=== PATIENT | female | born 1980 | race Caucasian/White ===

== ENCOUNTER 2019-01-20 08:00 | Day surgery (SDC) | payer OTHER ==
[~2019-01-20 08:00] MED LIST: Lactated Ringers 1,000 ML IV SCH; Sodium Chloride 0.9% 10 ML SDV IV PRN; Sodium Chloride 0.9% 10 ML Syringe FLUSH PRN; Sodium Chloride 0.9% 2.5 ML Syringe FLUSH PRN; ceFAZolin 2 GM in Premix Bag 1 BAG IV ONE
--- NOTE | 2019-01-20 08:34 | PCM.PREANE ---
Preanesthetic Assessment - Anesthesia/Transfusion/Family Hx Anesthesia History: Prior Anesthesia Without Reaction Other Type of Anesthesia Reaction Comment: mother has had time waking up Family History of Anesthesia Reaction: No Transfusion History: No Prior Transfusion(s) Intubation History: Unknown - Review of Systems General: No Symptoms Pulmonary: No Symptoms Cardiovascular: No Symptoms Gastrointestinal: No Symptoms Neurological: No Symptoms Other: Reports: None - Physical Assessment Height: 5 ft 1 in Weight: 97.522 kg ASA Class: 2 Mental Status: Alert & Oriented x3 Airway Class: Mallampati = 2 Dentition: Reports: Normal Dentition Thyro-Mental Finger Breadths: 2 Mouth Opening Finger Breadths: 3 ROM/Head Extension: Full Lungs: Clear to Auscultation, Normal Respiratory Effort Cardiovascular: Regular Rate, Regular Rhythm - Allergies Allergies/Adverse Reactions: Allergies Allergy/AdvReac Type Severity Reaction Status Date / Time No Known Allergies Allergy Verified 01/19/19 07:26 - Blood Blood Available: No - Anesthesia Plan Pre-Op Medication Ordered: None - Acknowledgements Anesthesia Type Planned: General Anesthesia Pt an Appropriate Candidate for the Planned Anesthesia: Yes Alternatives and Risks of Anesthesia Discussed w Pt/Guardian: Yes Pt/Guardian Understands and Agrees with Anesthesia Plan: Yes PreAnesthesia Questionnaire - Past Health History Medical/Surgical History: Denies Medical/Surgical History HEENT History: Reports: Other (See Below) Other HEENT History: wears glasses Cardiovascular History: Reports: None Respiratory History: Reports: Other (See Below) (h/o pneumonia 08/10) Gastrointestinal History: Reports: GERD Genitourinary History: Reports: Pyelonephritis, Renal Calculus Other Genitourinary History: hospitalized in Jul 2018 for pylonephritis [employer] History: Reports: Musculoskeletal History: Reports: None Neurological History: Reports: None Psychiatric History: Reports: Depression Endocrine/Metabolic History: Reports: Obesity/BMI 30+ Hematologic History: Reports: None Immunologic History: Reports: None Oncologic (Cancer) History: Reports: None Dermatologic History: Reports: None - Infectious Disease History Infectious Disease History: Reports: Chicken Pox - Past Surgical History Head Surgeries/Procedures: Reports: None HEENT Surgical History: Reports: None Cardiovascular Surgical History: Reports: None Respiratory Surgical History: Reports: None GI Surgical History: Reports: None Female Surgical History: Reports: Other (See Below) Other Female Surgeries/Procedures: ESSURE procedure Endocrine Surgical History: Reports: None Neurological Surgical History: Reports: None Musculoskeletal Surgical History: Reports: None Oncologic Surgical History: Reports: None Dermatological Surgical History: Reports: None - SUBSTANCE USE Smoking Status *Q: Never Smoker - HOME MEDS Home Medications: Home Meds Calcium Carbonate [Tums] 1 tab.chew CHEW ASDIRECTED PRN 01/19/19 [History] Ibuprofen 2 tab PO ASDIRECTED PRN 01/19/19 [History] Tamsulosin HCl 0.4 mg PO DAILY 01/19/19 [History] oxyCODONE HCl/Acetaminophen [Oxycodone-Acetaminophen 5-325] 1 tab PO ASDIRECTED PRN 01/19/19 [History] - CURRENT (IN HOUSE) MEDS Current Meds: Current Medications Lactated Ringer's (Ringers, Lactated) 1,000 mls @ 100 mls/hr IV ASDIRECTED NORMA Sodium Chloride (Saline Flush) 10 ml FLUSH ASDIRECTED PRN PRN Reason: Keep Vein Open Sodium Chloride (Saline Flush) 2.5 ml FLUSH ASDIRECTED PRN PRN Reason: Keep Vein Open Sodium Chloride (Normal Saline) 10 ml IV ASDIRECTED PRN PRN Reason: IV Use Discontinued Medications Cefazolin Sodium/Dextrose 2 gm (/ Premix) 50 mls @ 100 mls/hr IV ONCALL ONE Stop: 01/20/19 05:29
[2019-01-20] MEDS ORDERED: Lidocaine 2% 5 ML SDV ONE (08:44)
[2019-01-20] MEDS ORDERED: Propofol 200 MG/20 ML SDV ONE (08:44)
[2019-01-20] MEDS ORDERED: Ondansetron 4 MG/2 ML SDV ONE (08:44)
[2019-01-20] MEDS ORDERED: Midazolam 1 MG/ML 2 ML SDV ONE ×2 (08:45→12:54)
[2019-01-20] MEDS ORDERED: fentaNYL 250 MCG/5 ML SDV ONE (08:45)
[2019-01-20] MEDS ORDERED: fentaNYL 100 MCG/2 ML SDV IVPUSH PRN ×2 (09:40→10:59)
[2019-01-20] MEDS ORDERED: ceFAZolin/Dextrose,Iso-Osmotic 2 GM/50 ML Duplex Bag IV ONE (09:43)
[2019-01-20] MEDS ORDERED: Acetaminophen 1,000 MG in Premix Bag 1 BAG IV ONE (09:45)
[2019-01-20] MEDS ORDERED: Ketamine 500 mg/10 ML MDV ONE (10:12)
[2019-01-20] MEDS ORDERED: Dexamethasone 4 MG/ML 5 ML MDV ONE (10:19)
[2019-01-20] MEDS ORDERED: EPINEPHrine 1:10,000 1 MG/10 ML Syringe IVPUSH PRN (10:59)
[2019-01-20] MEDS ORDERED: Atropine 0.1 MG/ML 10 ML Syringe IVPUSH PRN ×2 (10:59)
[2019-01-20] MEDS ORDERED: 50% Dextrose in Water 50 ML Syringe IVPUSH PRN (10:59)
[2019-01-20] MEDS ORDERED: HYDROmorphone 2 MG/ML Syringe IVPUSH PRN (10:59)
[2019-01-20] MEDS ORDERED: Albuterol 0.083% 2.5 MG/3 ML Neb Soln NEB PRN (10:59)
[2019-01-20] MEDS ORDERED: Naloxone 0.4 MG/ML Syringe IVPUSH PRN (10:59)
[2019-01-20] MEDS ORDERED: Ibuprofen 200 MG Tab PO PRN (11:17)
[2019-01-20] MEDS ORDERED: Calcium Carbonate 500 MG Tab.Chew CHEW PRN (11:17)
[2019-01-20] MEDS ORDERED: Acetaminophen/oxyCODONE 325-5 MG Tab PO PRN (11:17)
[2019-01-20] MEDS ORDERED: Ibuprofen 400 MG Tab PO PRN (11:45)
[2019-01-20] MEDS ORDERED: Iopamidol 200-M 10 ML vial ITHECAL ONE (11:59)
[2019-01-20] MEDS ORDERED: Promethazine 25 MG/ML SDV IM ONE (12:32)
[2019-01-20] MEDS ORDERED: Promethazine 25 MG/ML SDV ONE (12:35)
[2019-01-20 15:04] VITALS: BP 116/72; PULSE 94
--- NOTE | 2019-01-20 15:56 | OR ---
SURGEON: Baljit King M.D. DATE OF PROCEDURE: 01/20/2019 PREOPERATIVE DIAGNOSIS: Right lower ureteral stone and right renal stone. POSTOPERATIVE DIAGNOSIS: Right lower ureteral stone and right renal stone. OPERATION: Right ureteroscopy stone removal, renoscopy, attempted manipulation or removal of stone, unsuccessful. DESCRIPTION OF PROCEDURE: Patient was given general anesthesia. She was in the dorsal lithotomy position, prepped and draped in sterile drapes. Cystourethroscopy was done. A guidewire was advanced in the right ureter. The lower ureter was dilated using the UroMax II balloon dilator to approximately 15-I[place]ic. The rigid ureteroscope was introduced in the ureter alongside the guidewire, the stone was removed. Another guidewire was placed in and the flexible ureteroscope was advanced over one of the guidewires all the way up into the kidney. The stone was visualized in the mid pole calyx, but could not be manipulated to get the laser on it or to grab it with the zero-tip basket. With that done, the procedure was terminated. The stone in the kidney is 4 mm. The bladder was emptied. The specimen was submitted, and the patient was moved to recovery room in good condition. ISABEL / ZACHARIAH /[id number]
[2019-01-21] MEDS ORDERED: Tamsulosin 0.4 MG Cap.ER PO SCH (09:00)
--- NOTE | 2019-01-21 11:16 | CR ---
INDICATION: Right ureteroscopy with stone removal. COMPARISON: CT of the abdomen and pelvis from 01/17/2019. FINDINGS: Three images from intraoperative fluoroscopy are submitted. A total of 12 seconds of fluoroscopic time was used. The initial image shows placement of a guidewire into the area of the right renal pelvis. There is no sign of any calculi in this region. The 2nd image shows satisfactory position of a catheter and guidewire alongside of the initial kind wire and contrast injection into the mildly dilated right collecting system. The tips of both guidewires and the catheter are located in the upper pole calyx. No distinct filling defect is seen in the right collecting system. The final image shows flow of contrast into the nondilated proximal ureter with decreased distention of the right collecting system. IMPRESSION: Mild dilatation of the right renal pelvis during contrast injection, with no sign of dilatation of the proximal ureter. No filling defects seen in the right collecting system. Dictated by Bernard Soto MD @ Jan 21 2019 11:07AM Signed by Dr. Bernard Soto @ Jan 21 2019 11:13AM
== END 2019-01-20 14:52 | disposition home or self-care (01) ==
LOC: MW.SDS 08:00
PROVIDERS: ATTEND Urology
DX: N20.2 Calculus of kidney with calculus of ureter (principal); M17.10 Unilateral primary osteoarthritis, unspecified knee; E66.9 Obesity, unspecified; Z68.41 Body mass index [BMI] 40.0-44.9, adult
CPT/HCPCS: 52352; 76000; 81025; J0131; J0690; J1100; J2001; J2250; J2405; J2550; J2704; J3010; J7120; Q9966; 00918; 88300; C1769

== ENCOUNTER 2021-12-23 18:04 | Emergency (ER) | payer OTHER ==
[2021-12-23 18:55] LABS: CORONAVIRUS COVID-19 NAA NEGATIVE (NEGATIVE); INFLUENZA A NAA NEGATIVE (NEGATIVE); INFLUENZA B NAA NEGATIVE (NEGATIVE)
[2021-12-23 19:14] LABS: CARBON DIOXIDE,CO2 22.7 mmol/L (21.0-32.0); POTASSIUM,K 3.5 mmol/L (3.5-5.1)
[2021-12-23] MEDS ORDERED: Sodium Chloride 0.9% 1,000 ML IV ONE (19:53)
[2021-12-23] MEDS ORDERED: methylPREDNISolone Sodium Succinate 125 MG/2 ML SDV IVPUSH ONE (20:30)
[2021-12-23] MEDS ORDERED: Albuterol/Ipratropium 3.0-0.5 MG/3 ML Neb Soln NEB ONE (20:30)
[2021-12-23] MEDS ORDERED: Albuterol 8 GM Inhaler INH ONE (20:37)
[2021-12-23 21:11] VITALS: BP 115/65; PULSE 80
[2021-12-24] MEDS ORDERED: Iopamidol 755 MG/ML 500 ML Multipack Bottle IVPUSH ONE (04:27)
== END 2021-12-23 21:16 | disposition home or self-care (01) ==
LOC: MW.ED 18:04
DX: J06.9 Acute upper respiratory infection, unspecified (principal); Z20.822 Contact with and (suspected) exposure to COVID-19; E66.9 Obesity, unspecified; Z68.41 Body mass index [BMI] 40.0-44.9, adult
CPT/HCPCS: 0240U; 36415; 71045; 71275; 80053; 84484; 85025; 85379; 93005; 96374; 99285; A9270; J2930; J7030; 99284

== ENCOUNTER 2023-02-06 09:42 | Day surgery (SDC) | payer OTHER ==
[~2023-02-06 09:42] MED LIST changes: -Lactated Ringers 1,000 ML IV SCH; -Sodium Chloride 0.9% 10 ML SDV IV PRN; -Sodium Chloride 0.9% 10 ML Syringe FLUSH PRN; -Sodium Chloride 0.9% 2.5 ML Syringe FLUSH PRN; -ceFAZolin 2 GM in Premix Bag 1 BAG IV ONE; +propofoL 50 ML ONE
[2023-02-06] MEDS ORDERED: Lactated Ringers 1,000 ML IV SCH (11:45)
[2023-02-06 12:54] VITALS: BP 115/60; PULSE 67
== END 2023-02-06 11:47 | disposition home or self-care (01) ==
LOC: MW.SDS 09:42
PROVIDERS: ATTEND Surgery
DX: K64.2 Third degree hemorrhoids (principal); K21.9 Gastro-esophageal reflux disease without esophagitis; K44.9 Diaphragmatic hernia without obstruction or gangrene; K43.2 Incisional hernia without obstruction or gangrene; K59.09 Other constipation; E66.9 Obesity, unspecified; G47.30 Sleep apnea, unspecified; M17.9 Osteoarthritis of knee, unspecified; F32.A Depression, unspecified; N89.8 Other specified noninflammatory disorders of vagina; B37.31 Acute candidiasis of vulva and vagina; Z68.41 Body mass index [BMI] 40.0-44.9, adult; Z90.49 Acquired absence of other specified parts of digestive tract; Z79.899 Other long term (current) drug therapy
CPT/HCPCS: 43239; 45380; 81025; J2704; J7120; 00813